=== PATIENT | female | born 1950 | race Caucasian/White ===

== ENCOUNTER → 2025-04-19 10:53 | Outpatient (BNVA) | payer MEDICAID, SELFPAY | PROVIDERS: PCP Nurse Practitioner Primary Care; Referring Provider Nurse Practitioner Primary Care; Visit Provider Psychiatry & Neurology Neurology | DX: G62.9 Polyneuropathy, unspecified (principal); M21.372 Foot drop, left foot | CPT/HCPCS: 99205; 95908; 95885 ==